=== PATIENT | male | born 1940 | race African-American/Black ===

== ENCOUNTER 2022-07-31 11:26 | Emergency (ER) | payer MEDICARE, OTHER ==
[~2022-07-31] VITALS: Ht 167.6 cm; Wt 66.8 kg
[2022-07-31 11:55] LABS: BASOPHILS % (AUTO) 0.3 % (0.0-2.0); EOSINOPHILS % (AUTO) 1.6 % (1.0-6.0); HEMOGLOBIN 11.7 g/dL (13.5-17.5); LYMPHOCYTES # (AUTO) 2.1 K/uL (1.0-4.8); LYMPHOCYTES % (AUTO) 43.4 % (22.0-44.0); MEAN CORPUSCULAR HEMOGLOBIN 28.9 pg (26.0-34.0); MEAN CORPUSCULAR HGB CONC 32.6 G/dL (31.0-37.0); MEAN CORPUSCULAR VOLUME 89 fL (80-100); MONOCYTES # (AUTO) 0.3 K/uL (0.1-1.0); MONOCYTES % (AUTO) 5.5 % (2.0-9.0); NEUTROPHILS # (AUTO) 2.4 K/uL (1.8-7.7); NEUTROPHILS % (AUTO) 49.2 % (40.0-70.0); PLATELET COUNT (AUTO) 197 K/uL (150-450); RED BLOOD CELL COUNT(AUTO) 4.07 MIL/uL (4.50-5.90); RED CELL DISTRIBUTION WIDTH 15.1 % (11.5-14.5)
[2022-07-31 12:10] LABS: ANION GAP 6 mmol/L (8-16); B-TYPE NATRIURETIC PEPTIDE 601 pg/mL (0-100); CALCIUM, TOTAL 9.1 mg/dL (8.8-10.5); CARBON DIOXIDE 27 mmol/L (22-29); CHLORIDE 100 mmol/L (98-107); CREATININE 1.91 mg/dL (0.60-1.30); GLOMERULAR FILTR. RATE CALC 41 mL/min (>60); GLUCOSE,RANDOM 170 mg/dL (70-110); POTASSIUM 4.3 mmol/L (3.5-5.1); SODIUM SERUM 133 mmol/L (136-145); UREA NITROGEN, BLOOD 13 mg/dL (7-18)
[2022-07-31 12:26] LABS: ALANINE AMINOTRANSFERASE 15 U/L (12-78); ALBUMIN 3.2 g/dL (3.4-5.0); ALKALINE PHOSPHATASE 107 U/L (46-116); ASPARTATE AMINOTRANSFERASE 16 U/L (15-37); BILIRUBIN,TOTAL 0.5 mg/dL (0.1-1.0); CREATINE KINASE, TOTAL ONLY 69 U/L (39-308); TOTAL PROTEIN, SERUM 7.4 g/dL (6.4-8.2)
[2022-07-31 12:35] LABS: PROTHROMBIN TIME 10.9 SEC (9.4-11.6)
[2022-07-31] MEDS ORDERED: ASPIRIN 81 MG CHEWABLE TABLET PO ONE (14:30)
[2022-07-31 17:19] LABS: APPEARANCE,URINE CLEAR (CLEAR); BILIRUBIN,URINE NEGATIVE (NEGATIVE); GLUCOSE, URINE (UA) >=1000 mg/dL (NEGATIVE); KETONES,URINE NEGATIVE (NEGATIVE); LEUKOCYTE ESTERASE ,URINE NEGATIVE (NEGATIVE); NITRATE,URINE NEGATIVE (NEGATIVE); OCCULT BLOOD,URINE TRACE (NEGATIVE); PH,URINE 6.5 (5.0-8.0); PROTEIN,URINE TRACE mg/dL (NEGATIVE); SPECIFIC GRAVITIY, URINE 1.011 (1.003-1.030); UROBILINOGEN,URINE <=1.0 mg/dL (<=1.0)
[2022-07-31 17:48] LABS: AMPHET/METH SCREEN,URINE NEGATIVE (NEGATIVE); BARBITURATE SCREEN, URINE NEGATIVE (NEGATIVE); BENZODIAZEPINES SCREEN,URINE NEGATIVE (NEGATIVE); CANNABINOID SCREEN,URINE NEGATIVE (NEGATIVE); COCAINE SCREEN,URINE NEGATIVE (NEGATIVE); METHADONE SCREEN, URINE NEGATIVE (NEGATIVE); OPIATE SCREEN,URINE NEGATIVE (NEGATIVE)
[2022-07-31 17:49] LABS: PHENCYCLIDINE SCREEN,URINE NEGATIVE (NEGATIVE)
[2022-07-31 18:06] LABS: GLUCOSE,POINT OF CARE 161 MG/DL (70-110)
[2022-07-31 18:07] LABS: BACTERIA,URINE None Seen /HPF (None Seen); RBC,URINE None Seen /HPF (0-2); WBC,URINE None Seen /HPF (0-5)
[2022-07-31 18:18] VITALS: BP 160/90
== END 2022-07-31 18:31 | disposition admitted as inpatient to this hospital (09) ==
LOC: EMS 11:30
DX: I48.92 Unspecified atrial flutter (principal); I63.9 Cerebral infarction, unspecified; E11.9 Type 2 diabetes mellitus without complications; I10 Essential (primary) hypertension
CPT/HCPCS: 99285; 70551; 70450; 71045; 80053; 81001; 82550; 82962; 83880; 84484; 85025; 85610; 85730; 36415; 93005; 80307; G0480

== ENCOUNTER 2025-06-26 09:10 | Inpatient (IN) | payer MEDICARE, OTHER ==
[~2025-06-26] VITALS: Ht 167.6 cm; Wt 66.2 kg
[2025-06-26 10:08] LABS: PLATELET COUNT (AUTO) 167 K/uL (150-450); RED BLOOD CELL COUNT(AUTO) 5.23 MIL/uL (4.50-5.90); RED CELL DISTRIBUTION WIDTH 13.8 % (11.5-14.5); WHITE BLOOD COUNT (AUTO) 3.9 K/uL (4.5-11.0)
[2025-06-26 10:18] LABS: CALCIUM, TOTAL 8.5 mg/dL (8.8-10.5); CREATININE 1.74 mg/dL (0.60-1.30); GLOMERULAR FILTR. RATE CALC 45 mL/min (>60); GLUCOSE,RANDOM 133 mg/dL (70-110); SODIUM SERUM 130 mmol/L (136-145); UREA NITROGEN, BLOOD 36 mg/dL (7-18)
[2025-06-26 10:24] LABS: ASPARTATE AMINOTRANSFERASE 59.0 U/L (15-37); CREATINE KINASE, TOTAL ONLY 872.0 U/L (39-308); TOTAL PROTEIN, SERUM 7.4 g/dL (6.4-8.2)
[2025-06-26 10:28] LABS: TROPONIN I-HIGH SENSITIVITY 203 ng/L (<76)
[2025-06-26 10:58] LABS: LACTIC ACID 1.6 mmol/L (0.4-2.0)
[2025-06-26 11:03] LABS: APPEARANCE,URINE CLEAR (CLEAR); GLUCOSE, URINE (UA) >=1000 mg/dL (NEGATIVE); LEUKOCYTE ESTERASE ,URINE NEGATIVE (NEGATIVE); NITRATE,URINE NEGATIVE (NEGATIVE); OCCULT BLOOD,URINE LARGE (NEGATIVE); PH,URINE DRUG SCREEN 5.5 (5.0-8.0); SPECIFIC GRAVITIY, URINE 1.028 (1.003-1.030)
[2025-06-26 11:09] LABS: ALCOHOL, URINE DRUG SCREEN NEGATIVE (NEGATIVE); AMPHET/METH SCREEN,URINE NEGATIVE (NEGATIVE); BARBITURATE SCREEN, URINE NEGATIVE (NEGATIVE); CANNABINOID SCREEN,URINE POSITIVE (NEGATIVE); COCAINE SCREEN,URINE NEGATIVE (NEGATIVE); METHADONE SCREEN, URINE NEGATIVE (NEGATIVE)
[2025-06-26 11:19] LABS: FINE GRANULAR CASTS,URINE 0-2 /LPF (None Seen); HYALINE CASTS, URINE 0-2 /LPF (None Seen)
[2025-06-26] MEDS: SODIUM CHLORIDE 0.9% 2,000 ML IV ONE (11:23)
[2025-06-26] MEDS: CefTRIAXone 1 GM/DEXTROSE 50 ML IV ONE (11:38)
[2025-06-26] MEDS: ASPIRIN 325 MG TABLET PO ONE (11:38)
[2025-06-26] MEDS: IOHEXOL 9 MG/ML 500 ML BOTTLE PO ONE (11:47)
[2025-06-26 12:42] LABS: TROPONIN I-HIGH SENSITIVITY 185 ng/L (<76)
[2025-06-26 13:05] LABS: COVID AG,FIA SOURCE NASAL SWAB
[2025-06-26 13:42] LABS: INFLUENZA TYPE A NEGATIVE FOR TYPE A (NEGATIVE); INFLUENZA TYPE B NEGATIVE FOR TYPE B (NEGATIVE); SARS-COV2 (COVID) ANTIGEN,FIA Negative (Negative)
[2025-06-26] MEDS: SODIUM CHLORIDE 0.9% 1,000 ML IV SCH (14:02)
[2025-06-26] MEDS ORDERED: MORPHINE SULFATE 2 MG/ML SYRINGE IVP PRN (15:45)
[2025-06-26] MEDS ORDERED: HYDROCODONE/ACETAMINOPHEN 5-325 MG TABLET PO PRN (15:45)
[2025-06-26] MEDS ORDERED: MAGNESIUM HYDROXIDE SUSPENSION 30 ML UDCUP PO PRN (15:45)
[2025-06-26] MEDS: ASPIRIN 81 MG CHEWABLE TABLET PO SCH (15:45)
[2025-06-26] MEDS ORDERED: BISACODYL 10 MG RECTAL RECTAL SUPPOSITORY PR PRN (15:45)
[2025-06-26] MEDS ORDERED: ONDANSETRON HCL 4 MG/2 ML VIAL IVP PRN (15:45)
[2025-06-26] MEDS ORDERED: ZOLPIDEM TARTRATE 5 MG TABLET PO PRN (15:45)
[2025-06-26] MEDS: SODIUM CHLORIDE 0.9% 1,000 ML IV ONE (15:49)
[2025-06-26] MEDS: HEPARIN SODIUM,PORCINE 5,000 UNITS/ML VIAL SQ SCH (17:00)
[2025-06-26 18:30] VITALS: BP 155/110; PULSE 108; RESP 18; TEMP 98.1; O2SAT 98
[2025-06-26 19:36] VITALS: BP 147/116; PULSE 107; RESP 18; TEMP 98.6; O2SAT 98
[2025-06-26] MEDS: METOPROLOL TARTRATE 25 MG TABLET PO SCH (20:25)
[2025-06-26] MEDS: DOCUSATE SODIUM 100 MG CAPSULE PO SCH (20:25)
[2025-06-26 23:32] VITALS: BP 137/116; PULSE 75; RESP 17; TEMP 99.7; O2SAT 98
[2025-06-27] VITALS (7 sets, daily range): BP systolic 121–151; BP diastolic 84–111; PULSE 56–111; RESP 18–19; TEMP 97.3–100.8; O2SAT 98–100
[2025-06-27] MEDS: ACETAMINOPHEN 325 MG TABLET PO PRN (00:19)
[2025-06-27 06:10] LABS: PLATELET COUNT (AUTO) 135 K/uL (150-450); RED BLOOD CELL COUNT(AUTO) 5.01 MIL/uL (4.50-5.90); RED CELL DISTRIBUTION WIDTH 13.8 % (11.5-14.5); WHITE BLOOD COUNT (AUTO) 3.4 K/uL (4.5-11.0)
[2025-06-27 06:11] LABS: CALCIUM, TOTAL 8.3 mg/dL (8.8-10.5); CREATININE 1.73 mg/dL (0.60-1.30); GLOMERULAR FILTR. RATE CALC 46.0 mL/min (>60); GLUCOSE,RANDOM 81.0 mg/dL (70-110); SODIUM SERUM 131.0 mmol/L (136-145); UREA NITROGEN, BLOOD 33.0 mg/dL (7-18)
[2025-06-27] MEDS ORDERED: DEXTROSE 50%-WATER 25 GM/50 ML SYRINGE IVP PRN (06:30)
[2025-06-27] MEDS: PANTOPRAZOLE SODIUM 40 MG DR TABLET PO SCH (09:46)
[2025-06-27] MEDS: AMIODARONE HCL 150 MG in DEXTROSE 5%-WATER 97 ML IV ONE (09:54)
[2025-06-27] MEDS: *CLINICAL-LEVOFLOXACIN IVPB DOSING CLINICAL ONE (10:03)
[2025-06-27] MEDS: AMIODARONE HCL 360 MG in DEXTROSE 5%-WATER 242.8 ML IV ONE (10:24)
[2025-06-27] MEDS: METOPROLOL SUCCINATE 25 MG ER TABLET PO SCH (11:55)
[2025-06-27] MEDS ORDERED: CefTRIAXone 1 GM/DEXTROSE 50 ML IV SCH (12:00)
[2025-06-27] MEDS: INSULIN LISPRO 100 UNITS/ML SQ PRN (12:13)
[2025-06-27] MEDS: LEVOFLOXACIN 750 MG/D5% WATER 150 ML IV SCH (13:32)
[2025-06-27] MEDS: CefTRIAXone SODIUM 2 GM in DEXTROSE 5%-WATER 50 ML IV SCH (15:43)
[2025-06-27] MEDS: AMIODARONE HCL 540 MG in DEXTROSE 5%-WATER 250 ML IV ONE (15:47)
[2025-06-27] MEDS ORDERED: MELA3TAB89 PO (18:18)
[2025-06-27] MEDS ORDERED: SILD20TA PO (18:18)
[2025-06-27] MEDS ORDERED: EMPA25TA3 PO (18:28)
[2025-06-27] MEDS ORDERED: APIX2.5T PO (18:32)
[2025-06-27] MEDS ORDERED: SENN-376 PO (18:36)
[2025-06-27] MEDS ORDERED: GABA-1181 PO (18:36)
[2025-06-27] MEDS ORDERED: AMLO-257 PO (18:36)
[2025-06-27] MEDS ORDERED: LORA10TA7 PO (18:38)
[2025-06-27] MEDS ORDERED: TAMS0.4C94 PO (18:38)
[2025-06-28 03:19] VITALS: PULSE 102; TEMP 98.4
[2025-06-28 07:14] VITALS: BP 145/99; PULSE 97; RESP 18; TEMP 98.4; O2SAT 95
[2025-06-28 07:27] LABS: PLATELET COUNT (AUTO) 120 K/uL (150-450); RED BLOOD CELL COUNT(AUTO) 5.26 MIL/uL (4.50-5.90); RED CELL DISTRIBUTION WIDTH 13.9 % (11.5-14.5); WHITE BLOOD COUNT (AUTO) 4.1 K/uL (4.5-11.0)
[2025-06-28 07:54] LABS: CALCIUM, TOTAL 8.3 mg/dL (8.8-10.5); CREATININE 1.62 mg/dL (0.60-1.30); GLOMERULAR FILTR. RATE CALC 49.0 mL/min (>60); GLUCOSE,RANDOM 98.0 mg/dL (70-110); SODIUM SERUM 131.0 mmol/L (136-145); UREA NITROGEN, BLOOD 5.0 mg/dL (7-18)
[2025-06-28 08:07] LABS: TROPONIN I-HIGH SENSITIVITY 191 ng/L (<76)
[2025-06-28] MEDS: APIXABAN 2.5 MG TABLET PO SCH (08:27)
[2025-06-28] MEDS: AMIODARONE HCL 750 MG in DEXTROSE 5%-WATER 485 ML IV SCH (09:34)
[2025-06-28 11:34] VITALS: BP 157/108; PULSE 98; RESP 18; TEMP 99.1; O2SAT 96
[2025-06-28 15:24] VITALS: BP 140/108; PULSE 86; RESP 18; TEMP 100.2; O2SAT 96
[2025-06-28 17:57] LABS: GLUCOMETER DEV NAME(LOC) 5N.2C; GLUCOSE,POINT OF CARE 113 MG/DL (70-110)
[2025-06-28 17:57] LABS: GLUCOMETER DEV NAME(LOC) 5N.2C; GLUCOSE,POINT OF CARE 111 MG/DL (70-110)
[2025-06-28 20:41] VITALS: BP 154/104; PULSE 96; RESP 20; TEMP 100.9; O2SAT 95
[2025-06-28] MEDS: TOLVAPTAN 15 MG TABLET PO ONE (21:58)
[2025-06-28 23:52] VITALS: BP 144/102; PULSE 74; RESP 18; TEMP 100.2; O2SAT 99
[2025-06-29] MEDS: CefTRIAXone SODIUM 2 GM in DEXTROSE 5%-WATER 50 ML IV SCH (02:57)
[2025-06-29 05:42] VITALS: BP 144/104; PULSE 53; RESP 18; TEMP 99.1; O2SAT 98
[2025-06-29 06:28] LABS: PLATELET COUNT (AUTO) 133 K/uL (150-450); RED BLOOD CELL COUNT(AUTO) 5.27 MIL/uL (4.50-5.90); RED CELL DISTRIBUTION WIDTH 14.0 % (11.5-14.5); WHITE BLOOD COUNT (AUTO) 6.5 K/uL (4.5-11.0)
[2025-06-29 07:09] LABS: ASPARTATE AMINOTRANSFERASE 47.0 U/L (15-37); CALCIUM, TOTAL 8.5 mg/dL (8.8-10.5); CREATININE 2.01 mg/dL (0.60-1.30); GLOMERULAR FILTR. RATE CALC 38.0 mL/min (>60); GLUCOSE,RANDOM 122.0 mg/dL (70-110); PHOSPHORUS 3.9 mg/dL (2.5-4.9); SODIUM SERUM 134.0 mmol/L (136-145); TOTAL PROTEIN, SERUM 7.4 g/dL (6.4-8.2); UREA NITROGEN, BLOOD 38.0 mg/dL (7-18)
[2025-06-29 07:17] VITALS: BP 132/100; PULSE 73; RESP 18; TEMP 98; O2SAT 98
[2025-06-29] MEDS: BUMETANIDE 0.25 MG/ML 4 ML VIAL IVP SCH (08:41)
[2025-06-29 11:06] VITALS: BP 138/91; PULSE 115; RESP 18; TEMP 97.5; O2SAT 97
[2025-06-29] MEDS: DOXYCYCLINE HYCLATE 200 MG in DEXTROSE 5%-WATER 250 ML IV ONE (14:02)
[2025-06-29] MEDS: SODIUM BICARBONATE 75 MEQ in SODIUM CHLORIDE 0.45% 1,000 ML IV ONE (14:57)
[2025-06-29 15:33] VITALS: BP 126/88; PULSE 89; RESP 18; TEMP 98; O2SAT 98
[2025-06-29] MEDS: PIPERACILLIN SODIUM/TAZOBACTAM 2.25 GM in DEXTROSE 5%-WATER 50 ML IV SCH (16:32)
[2025-06-29 17:52] LABS: INFLUENZA A-RTPCR,COMBO NEGATIVE (NEGATIVE); INFLUENZA B-RTPCR,COMBO NEGATIVE (NEGATIVE); RESPIRATORY SYNCYTIAL VRS-PCR NEGATIVE (NEGATIVE); SARS COVID19 RTPCR, COMBO NEGATIVE (NEGATIVE)
[2025-06-29 19:02] LABS: GLUCOMETER DEV NAME(LOC) 5S.2D; GLUCOSE,POINT OF CARE 234 MG/DL (70-110)
[2025-06-29 19:02] LABS: GLUCOMETER DEV NAME(LOC) 5S.2D; GLUCOSE,POINT OF CARE 83 MG/DL (70-110)
[2025-06-29 19:02] LABS: GLUCOMETER DEV NAME(LOC) 5S.2D; GLUCOSE,POINT OF CARE 157 MG/DL (70-110)
[2025-06-29 19:02] LABS: GLUCOMETER DEV NAME(LOC) 5S.2D; GLUCOSE,POINT OF CARE 152 MG/DL (70-110)
[2025-06-29 19:02] LABS: GLUCOMETER DEV NAME(LOC) 5S.2D; GLUCOSE,POINT OF CARE 220 MG/DL (70-110)
[2025-06-29 19:47] VITALS: BP 110/83; PULSE 99; RESP 18; TEMP 98.1; O2SAT 97
[2025-06-29] MEDS: AMIODARONE HCL 200 MG TABLET PO SCH (20:38)
[2025-06-29] MEDS: ISOSORBIDE DINITRATE 5 MG TABLET PO SCH (20:38)
[2025-06-29] MEDS: METOPROLOL SUCCINATE 25 MG ER TABLET PO SCH (20:39)
[2025-06-29 23:21] VITALS: BP 103/71; PULSE 89; RESP 18; TEMP 98.1; O2SAT 98
[2025-06-30] MEDS ORDERED: SODIUM CHLORIDE 0.9% 500 ML IV ONE (03:35)
[2025-06-30 04:06] LABS: HEPATITIS C AB (EIA) Non Reactive (Non Reactive)
[2025-06-30 05:33] VITALS: BP 119/104; PULSE 101; RESP 18; TEMP 98.2; O2SAT 97
[2025-06-30 06:27] LABS: PLATELET COUNT (AUTO) 121 K/uL (150-450); RED BLOOD CELL COUNT(AUTO) 5.12 MIL/uL (4.50-5.90); RED CELL DISTRIBUTION WIDTH 14.0 % (11.5-14.5); WHITE BLOOD COUNT (AUTO) 7.5 K/uL (4.5-11.0)
[2025-06-30 07:02] LABS: CALCIUM, TOTAL 8.3 mg/dL (8.8-10.5); CREATININE 1.99 mg/dL (0.60-1.30); GLOMERULAR FILTR. RATE CALC 39.0 mL/min (>60); GLUCOSE,RANDOM 117.0 mg/dL (70-110); SODIUM SERUM 135.0 mmol/L (136-145); UREA NITROGEN, BLOOD 43.0 mg/dL (7-18)
[2025-06-30 07:19] VITALS: BP 135/104; PULSE 99; RESP 18; TEMP 98.1; O2SAT 98
[2025-06-30 08:05] LABS: GLUCOMETER DEV NAME(LOC) 5S.1D; GLUCOSE,POINT OF CARE 109 MG/DL (70-110)
[2025-06-30 08:06] LABS: GLUCOMETER DEV NAME(LOC) 5S.1D; GLUCOSE,POINT OF CARE 121 MG/DL (70-110)
[2025-06-30] MEDS ORDERED: BUMETANIDE 0.25 MG/ML 4 ML VIAL IVP SCH (09:00)
[2025-06-30 11:33] VITALS: BP 121/64; PULSE 66; RESP 18; TEMP 98; O2SAT 96
[2025-06-30] MEDS: CITRIC ACID/SODIUM CITRATE 30 ML SOLUTION UDCUP PO SCH (15:37)
[2025-06-30 15:38] VITALS: BP 122/86; PULSE 84; RESP 18; TEMP 98.8; O2SAT 97
[2025-06-30 20:05] VITALS: BP 139/88; PULSE 79; RESP 18; TEMP 99.5; O2SAT 97
[2025-07-01 00:12] VITALS: BP 148/101; PULSE 71; RESP 16; TEMP 98.4; O2SAT 97
[2025-07-01 05:19] VITALS: BP 138/98; PULSE 103; RESP 16; TEMP 98; O2SAT 98
[2025-07-01 07:16] LABS: ASPARTATE AMINOTRANSFERASE 27.0 U/L (15-37); CALCIUM, TOTAL 8.4 mg/dL (8.8-10.5); CREATININE 2.01 mg/dL (0.60-1.30); GLOMERULAR FILTR. RATE CALC 38.0 mL/min (>60); GLUCOSE,RANDOM 125.0 mg/dL (70-110); SODIUM SERUM 137.0 mmol/L (136-145); TOTAL PROTEIN, SERUM 6.7 g/dL (6.4-8.2); UREA NITROGEN, BLOOD 41.0 mg/dL (7-18)
[2025-07-01 07:42] VITALS: BP 137/90; PULSE 82; RESP 18; TEMP 98.2; O2SAT 98
[2025-07-01 11:01] LABS: PLATELET COUNT (AUTO) 140 K/uL (150-450); RED BLOOD CELL COUNT(AUTO) 4.95 MIL/uL (4.50-5.90); RED CELL DISTRIBUTION WIDTH 14.5 % (11.5-14.5); WHITE BLOOD COUNT (AUTO) 9.9 K/uL (4.5-11.0)
[2025-07-01 11:08] VITALS: BP 101/65; PULSE 77; RESP 16; TEMP 98.1; O2SAT 96
[2025-07-01 12:16] LABS: GLUCOMETER DEV NAME(LOC) 5S.2D; GLUCOSE,POINT OF CARE 163 MG/DL (70-110)
[2025-07-01 12:16] LABS: GLUCOMETER DEV NAME(LOC) 5S.2D; GLUCOSE,POINT OF CARE 151 MG/DL (70-110)
[2025-07-01 12:16] LABS: GLUCOMETER DEV NAME(LOC) 5S.2D; GLUCOSE,POINT OF CARE 134 MG/DL (70-110)
[2025-07-01 12:16] LABS: GLUCOMETER DEV NAME(LOC) 5S.2D; GLUCOSE,POINT OF CARE 132 MG/DL (70-110)
[2025-07-01 12:16] LABS: GLUCOMETER DEV NAME(LOC) 5S.2D; GLUCOSE,POINT OF CARE 178 MG/DL (70-110)
[2025-07-01 13:07] LABS: LEGIONELLA PNEUMO AG URINE Negative (Negative); S PNEUMO SOURCE Urine; STREP PNEUMONIAE AG URINE Negative (Negative)
[2025-07-01 16:13] VITALS: BP 111/70; PULSE 85; RESP 18; TEMP 97.8; O2SAT 98
[2025-07-01 19:56] LABS: GLUCOMETER DEV NAME(LOC) 5N.1D; GLUCOSE,POINT OF CARE 119 MG/DL (70-110)
[2025-07-02] MEDS ORDERED: ATORVASTATIN CALCIUM 40 MG TABLET PO SCH (09:00)
[2025-07-04 14:07] LABS: ATYPICAL P-ANCA AB <1:20 titer (Neg:<1:20); CYTOPLASMIC (C-ANCA) AB, IGG <1:20 titer (Neg:<1:20)
== END 2025-07-01 16:35 | DRG 871 ==
LOC: EMS 09:10 → EDH 11:38 → 5S 18:06
PROVIDERS: ADMIT Internal Medicine; ATTEND Internal Medicine
DX: A41.9 Sepsis, unspecified organism (principal); G93.41 Metabolic encephalopathy; I50.23 Acute on chronic systolic (congestive) heart failure; I21.A1 Myocardial infarction type 2; J18.9 Pneumonia, unspecified organism; N17.9 Acute kidney failure, unspecified; I48.20 Chronic atrial fibrillation, unspecified; N39.0 Urinary tract infection, site not specified; E46 Unspecified protein-calorie malnutrition; E87.1 Hypo-osmolality and hyponatremia; I13.0 Hypertensive heart and chronic kidney disease with heart failure and stage 1 through stage 4 chronic kidney disease, or unspecified chronic kidney disease; E87.20 Acidosis, unspecified; I42.9 Cardiomyopathy, unspecified; E11.65 Type 2 diabetes mellitus with hyperglycemia; N26.1 Atrophy of kidney (terminal); N18.9 Chronic kidney disease, unspecified; E11.22 Type 2 diabetes mellitus with diabetic chronic kidney disease; F12.90 Cannabis use, unspecified, uncomplicated; N25.0 Renal osteodystrophy; D69.6 Thrombocytopenia, unspecified; Z20.822 Contact with and (suspected) exposure to COVID-19; Z68.23 Body mass index [BMI] 23.0-23.9, adult
CPT/HCPCS: 70450; 71045; 71250; 72141; 72146; 72148; 74176; 80048; 80053; 80076; 80307; 81001; 82140; 82306; 82550; 82962; 83605; 83880; 83970; 84100; 84484; 85025; 85610; 85730; 86038; 86256; 86592; 86803; 87040; 87340; 87449; 87637; 87804; 87899; 92610; 93005; 93306; 97110; 97162; 97530; 99291; J0282; J0696; J1644; J1956; J2543; J3490; J7040; J7060; 36415-L1; 36415-TC